=== PATIENT | female | born 1995 | race Two or more races ===

== ENCOUNTER 2023-12-03 09:50 | Observation (INO) | payer OTHER ==
[2023-12-03] MEDS ORDERED: PREN-96 PO (12:17)
[2023-12-03] MEDS ORDERED: ASPI81CH74 PO (12:18)
[2023-12-03] MEDS ORDERED: NITR-87 PO (12:18)
== END 2023-12-03 12:37 | disposition home or self-care (01) ==
LOC: UNDOADMOB 09:50 → LDRP 09:50 → UNDODISOB 12:37
PROVIDERS: ADMIT Obstetrics & Gynecology; ATTEND Obstetrics & Gynecology
DX: O62.9 Abnormality of forces of labor, unspecified (principal); O34.62 Maternal care for abnormality of vagina, second trimester; N89.8 Other specified noninflammatory disorders of vagina; Z3A.27 27 weeks gestation of pregnancy
CPT/HCPCS: 59025; 76815; 76817; 81002; 94760; G0378